=== PATIENT | male | born 1975 | race Caucasian/White ===

== ENCOUNTER → 2021-04-17 16:20 | Outpatient (CLI) | payer BC, SELFPAY ==
--- NOTE | 2021-04-17 16:36 | ECG_ITS ---
APPROVED REPORT Exam: Resting ECG HR:65 bpm ECG Measurements Heart Rate 65 AXES SC 174 P 40 QRSd 84 QRS 19 QT 392 T 22 QTc 407 Conclusion Sinus rhythm with marked sinus arrhythmia with occasional premature ventricular complexes Otherwise normal ECG Electronically signed by : Zi Tomlin MD 04/18/2021 21:03:44
== END ==
PROVIDERS: PCP Family Medicine; Visit Provider Family Medicine
DX: I49.49 Other premature depolarization (principal)
CPT/HCPCS: 93005

== ENCOUNTER 2024-06-01 07:48 | Day surgery (SDC) | payer BC, SELFPAY ==
[2024-05-27 13:30] VITALS: BMI 33.0
[2024-06-01] MEDS: LACTATED RINGERS 1000ML 1,000 ML 25 ML IV (08:04)
[2024-06-01 08:09] VITALS: BP 136/89; PULSE 88; RESP 18; TEMP 36.5; O2SAT 98
--- NOTE | 2024-06-01 08:17 | EXP.ANES.CKL ---
[facility] Disclaimer: The information contained in this section may have been updated after the patient was seen, as this information can be updated by other users. Medical History Hypothyroidism Diabetes Hypertension Surgical History Hx of colonoscopy Hx of knee surgery Family History Mother Diabetes Brother CVD (cardiovascular disease) Grandfather CVD (cardiovascular disease) Grandfather Colon cancer Social History Smoking Status: Never smoker alcohol intake: never substance use type: denies use current occupational status: employed Travel in the last 8 weeks: None housing: house Have you lived/traveled outside [place] in past 30 days?: No Contact w/someone who lives/traveled outside [place] past 30 days?: No Exposure to someone with infectious disease in past 14 days?: No Do you have a fever (greater than 100.4 F or 38 C)?: No Have you tested positive for COVID-19: No Exposed to someone with COVID-19 in past 14 days?: No Do you have a sore throat?: No Do you have a cough?: No Do you have any weakness?: No Are you experiencing any nausea/vomitting?: No Do you have any diarrhea?: No Are you experiencing any unusual bleeding?: No Do you have any muscle aches/pain?: No Do you have any abdominal pain?: No Are you experiencing loss of taste or smell?: No [facility] Anesthesia Checklist Patient Identification Patient Identification: Arm Band and Verbal (Name & ) Structural Data Admitted From: Home Planned Operative Procedure/s: Colonoscopy Consent for Planned Operative Procedure(s) Verified: Yes Verified Documents: Surgical Consent and History and Physical NPO Status Verified Time NPO: 00:00 Additional verifications Anesthesia Reactions: No Airway Assessment Mallampati Score:: Class II C-Spine Mobility Assessed: Yes TMJ Mobility Assessed: Yes Dentition: Good Dentition Neurological Assessment Level of Consciousness: Awake Hx Seizures: No Numbness or tingling in extremities: No Anesthesia Plan Anesthesia Risk discussed: Yes Anesthesia Plan: Verified ASA Class: II Anesthesia Type: MAC
[2024-06-01 08:20] LABS: POC Glucose,Bedside 192 (70-110)
[2024-06-01 08:45] VITALS: O2SAT 98
--- NOTE | 2024-06-01 08:48 | P.HP_ITS ---
History of Present Illness *Admission Date: 06/01/24 *Reason for visit:: Personal history of colon polyps *History of present illness: Mr. Solano is a 48-year-old gentleman who is here for surveillance colonoscopy secondary to a personal history of colon polyps. The examination is deemed medically necessary for surveillance colonoscopy. The patient has been seen, interviewed and examined prior to the procedure by both myself and the anesthesia provider. [facility] Disclaimer: The information contained in this section may have been updated after the patient was seen, as this information can be updated by other users. Medical History Hypothyroidism Diabetes Hypertension Surgical History Hx of colonoscopy Hx of knee surgery Family History Mother Diabetes Brother CVD (cardiovascular disease) Grandfather CVD (cardiovascular disease) Grandfather Colon cancer Social History Smoking Status: Never smoker alcohol intake: never substance use type: denies use current occupational status: employed Travel in the last 8 weeks: None housing: house Have you lived/traveled outside [place] in past 30 days?: No Contact w/someone who lives/traveled outside [place] past 30 days?: No Exposure to someone with infectious disease in past 14 days?: No Do you have a fever (greater than 100.4 F or 38 C)?: No Have you tested positive for COVID-19: No Exposed to someone with COVID-19 in past 14 days?: No Do you have a sore throat?: No Do you have a cough?: No Do you have any weakness?: No Are you experiencing any nausea/vomitting?: No Do you have any diarrhea?: No Are you experiencing any unusual bleeding?: No Do you have any muscle aches/pain?: No Do you have any abdominal pain?: No Are you experiencing loss of taste or smell?: No Other Medical History Have you received the Flu Vaccine for this season: No Review of Systems Review of Systems Review of systems (narrative): Negative *Cardiovascular Comments: Negative *Gastrointestinal Comments: Negative *Genitourinary Comments: Negative *Musculoskeletal Comments: Negative *Neurologic Comments: Negative Meds Home Medications and Allergies Home Medications ?Medication ?Instructions ?Recorded ?Confirmed ?Type cholecalciferol (vitamin D3) 125 125 mcg PO DAILY 06/01/24 06/01/24 History mcg (5,000 unit) tablet (Vitamin D3) levothyroxine 50 mcg tablet 50 mcg PO DAILY 06/01/24 06/01/24 History losartan 100 mg tablet 100 mg PO DAILY 06/01/24 06/01/24 History metformin 500 mg tablet 500 mg PO DAILY 06/01/24 06/01/24 History rosuvastatin 20 mg tablet 20 mg PO DAILY 06/01/24 06/01/24 History New Prescriptions to Start Prescriptions: Allergies Allergy/AdvReac Type Severity Reaction Status Date / Time Penicillins Allergy Hives Verified 06/01/24 08:06 Exam Data for Last 24 hours Vital signs and Labs for Last 24 Hours: Temp Pulse Resp BP Pulse Ox O2 Del Method 97.7 F 88 18 136/89 98 Room Air 06/01/24 08:09 06/01/24 08:09 06/01/24 08:09 06/01/24 08:09 06/01/24 08:09 06/01/24 08:09 Laboratory Results - last 24 hr 06/01/24 08:12: POC Glucose 192 H *Routine HEENT Exam Head: Present normocephalic Eye: Present EOMI and PERRL ENT: Present mucous membranes moist *Routine Neck Exam Neck: Present supple *Routine Respiratory Exam Respiratory: Present CTA bilaterally *Routine Cardiovascular Exam Cardiovascular: Present RRR *Routine Abdominal Exam Abdominal: Present soft and normoactive bowel sounds; Absent tenderness *Routine Rectal Exam Rectal:: deferred *Routine Genitalia Exam Genitalia:: deferred *Routine Extremities Exam Extremities: Absent cyanosis, clubbing or edema *Routine Skin Exam Skin: Present warm; Absent rash *Routine Neurological Exam Neurological: Present alert and oriented X3 Assessment and Plan *Assessment and plan (1) Personal history of adenomatous and serrated colon polyps: Status: Acute Category: Medical Code(s): Z86.0101 - Personal history of adenomatous and serrated colon polyps (2) Internal hemorrhoid, bleeding: Status: Acute Category: Medical Code(s): K64.8 - Other hemorrhoids (3) Mucus in stool: Status: Acute Category: Medical Code(s): R19.5 - Other fecal abnormalities Plan A/P: 1. Personal history of adenomatous colon polyps is the preprocedural diagnosis. The patient has had some bleeding from internal hemorrhoids with most bowel movements. He also has some mucus that seeps out. The patient will be anesthetized/sedated using MAC sedation. The patient has been seen and examined. Cardiac and lung assessment prior to the examination is stable. Proceed with planned surveillance colonoscopy
--- NOTE | 2024-06-01 08:55 | HMH.PROCNOTE ---
[facility] Procedure Note Date: 06/01/24 Time: 09:13 Procedure Note:: Colonoscopy Procedure Report: Colonoscopy with cold snare polypectomy and hemorrhoid band ligation Endoscopist: Himanshu Josue II, MD Referring physician: Hollis Montes De Oca MD Date of Procedure: June 01, 2024 Equipment: Olympus 190 variable stiffness pediatric colonoscope Sedation: MAC sedation Indication: Mr. Solano is a 48-year-old gentleman who is here for surveillance colonoscopy. He did have a colonoscopy with [facility] in [place] 6 or 7 years ago at which time 2 or 3 benign polyps were removed. He does report that his maternal grandfather had colon cancer. He also has had some frequent bright red blood per rectum on the toilet tissue from internal hemorrhoids. These may also prolapse slightly. After completion of a bowel movement he does have some mucus seepage. He reports no abdominal pain, weight loss or change in bowel habits. Procedure: Prior to the procedure, a history and physical exam was performed, and patient's medications and allergies were reviewed. The risks, benefits and alternatives of the sedation and procedure were discussed with the patient. All questions were answered and informed consent was obtained. The patient was brought to the procedure room. Patient identification and proposed procedure were verified by the physician and the nurse. The patient was placed in a left lateral decubitus position and the scope was passed under direct vision. Throughout the procedure, the patient's blood pressure, pulse, and oxygen saturations were monitored continuously. The colonoscopy was accomplished without difficulty. The patient tolerated the procedure well. Findings: On digital rectal examination there was normal rectal tone. There were external hemorrhoid tags and internal hemorrhoidal prolapse. The prostate was 2+, smooth, soft, symmetric without nodules.. The colonoscope was introduced through the anal canal to the rectum and advanced to the cecum. The ileocecal valve and appendiceal orifice were identified. The scope was advanced a short distance into the ileum which appeared grossly normal. The scope was then withdrawn into the colon. The cecum, ascending and transverse colon and mucosa were grossly normal. There were scattered diverticuli throughout the descending and sigmoid colon (LEFT colon). There was a diminutive 4 mm polyp in the sigmoid colon removed via cold snare polypectomy. The rectum itself was normal. Upon retroflexion within the rectum there were 2-3 internal hemorrhoids. 3 columns of hemorrhoids were banded using 4 bands with excellent ligation effect. The preparation was excellent throughout with [place] Preparation Score of 9. The cecal time was 13 minutes. Impression: 1. Diminutive 4 mm sigmoid polyp 2. Left-sided diverticulosis 3. Grade 2-3 internal hemorrhoids status post band ligation x 4 Plan: I will follow-up the polyp histology and recommend repeat surveillance colonoscopy again in 7 to 10 years based upon the pathology. I would encourage psyllium bulking fiber supplementation on a long-term daily maintenance basis.
[2024-06-01 09:24] VITALS: BP 132/94; PULSE 81; RESP 16; TEMP 36.8; O2SAT 95
[2024-06-01 09:34] VITALS: BP 142/89; PULSE 78; RESP 18; O2SAT 96
[2024-06-01 09:44] VITALS: BP 157/88; PULSE 79; RESP 18; O2SAT 98
[2024-06-01 09:54] VITALS: BP 152/86; PULSE 78; RESP 18; O2SAT 98
[2024-06-01] MEDS: HYDROCODONE/APAP 5/325 MG TABLET 1 TAB (10:03)
== END 2024-06-01 10:58 | disposition home or self-care (01) ==
PROVIDERS: PCP Family Medicine; Visit Provider Internal Medicine Gastroenterology
PROC: (CPT 45385; principal; 2024-06-01 09:00)
DX: R19.5 Other fecal abnormalities (principal); K64.8 Other hemorrhoids; Z86.0101 Personal history of adenomatous and serrated colon polyps; Z80.0 Family history of malignant neoplasm of digestive organs; K57.30 Diverticulosis of large intestine without perforation or abscess without bleeding; K63.5 Polyp of colon
CPT/HCPCS: 45385; 45398; 82962; C1889; J7120